=== PATIENT | female | born 1960 | race Caucasian/White ===

== ENCOUNTER 2021-08-15 15:21 | Outpatient (CLI) | payer BC | END 2021-08-15 15:22 | disposition home or self-care (01) | LOC: CSHMAMMO 15:21 | PROVIDERS: ATTEND Obstetrics & Gynecology | DX: Z12.31 Encounter for screening mammogram for malignant neoplasm of breast (principal) | CPT/HCPCS: 77063; 77067 ==

== ENCOUNTER 2022-02-20 05:58 | Day surgery (SDC) | payer BC ==
[2022-02-16 11:44] VITALS: BMI 38.0
[2022-02-20] MEDS ORDERED: PROPOFOL 40 ML ONE (08:02)
[2022-02-20] MEDS ORDERED: Lidocaine 1% PF 5 ML VIAL ONE (08:02)
== END 2022-02-20 09:22 | disposition home or self-care (01) ==
LOC: CSHSDC 05:58
PROVIDERS: ATTEND Internal Medicine Gastroenterology
PROC: 0DJD8ZZ Inspection of Lower Intestinal Tract, Via Natural or Artificial Opening Endoscopic (ICD-10-PCS; principal; 2022-02-20)
DX: Z12.11 Encounter for screening for malignant neoplasm of colon (principal); K64.8 Other hemorrhoids; J30.2 Other seasonal allergic rhinitis; E55.9 Vitamin D deficiency, unspecified; E53.9 Vitamin B deficiency, unspecified; F32.A Depression, unspecified; Z98.890 Other specified postprocedural states
CPT/HCPCS: J2704

== ENCOUNTER 2022-10-04 15:15 | Outpatient (CLI) | payer BC | END 2022-10-04 15:16 | disposition home or self-care (01) | LOC: CSHMAMMO 15:15 | PROVIDERS: ATTEND Obstetrics & Gynecology | DX: Z12.31 Encounter for screening mammogram for malignant neoplasm of breast (principal); N63.10 Unspecified lump in the right breast, unspecified quadrant | CPT/HCPCS: 77063; 77067 ==

== ENCOUNTER 2022-10-06 08:49 | Outpatient (CLI) | payer BC | END 2022-10-06 08:50 | disposition home or self-care (01) | LOC: CSHMAMMO 08:49 | PROVIDERS: ATTEND Obstetrics & Gynecology | DX: N63.10 Unspecified lump in the right breast, unspecified quadrant (principal) | CPT/HCPCS: G0279 ==

== ENCOUNTER 2024-10-29 15:12 | Outpatient (CLI) | payer OTHER | END 2024-10-29 15:13 | disposition home or self-care (01) | LOC: CSHMAMMO 15:12 | PROVIDERS: ATTEND Obstetrics & Gynecology | DX: Z12.31 Encounter for screening mammogram for malignant neoplasm of breast (principal) | CPT/HCPCS: 77063; 77067 ==